=== PATIENT | female | born 1975 | race Caucasian/White ===

== ENCOUNTER 2019-12-14 14:13 | Emergency (ER) | payer OTHER, SELFPAY ==
--- NOTE | ~2019-12-14 | CT_ITS ---
EXAMINATION: CT abdomen pelvis wo con DATE: 12/14/2019 15:59 INDICATION: Left flank pain, hematuria, dysuria TECHNIQUE: Computed tomography (CT) of the abdomen and pelvis was performed without intravenous contr ast. Automated exposure control and iterative reconstruction technique were employed. Exam dose: 103 8.24 mGy-cm total exam DLP. COMPARISON: 09/25/2013 CT abdomen pelvis FINDINGS: The included lower lung zones are clear of infiltrate or consolidation or pulmonary mass le ricky. Prominent hepatic steatosis. Status post cholecystectomy. No bile duct or pancreatic duct dilatation is detected. Normal splenic s ize. No adrenal mass lesion. No renal mass lesion. No urinary tract calculus or hydroureteronephrosis. The urinary bladder is unre markable. Status post hysterectomy. Normal caliber of the abdominal aorta. No intraperitoneal or retroperitoneal or pelvic mass lesion or adenopathy or ascites. Normal appendix. There is a suture line at the rectosigmoid area. No bowel obstruction, pneumatosis or intraperitoneal free air. IMPRESSION: No urinary tract calculus or hydroureteronephrosis is evident Status post rectosigmoid area resection Normal appendix Hepatic steatosis Status post cholecystectomy Reviewed, dictated and finalized at [facility] Reviewed, dictated and finalized at [facility].
[2019-12-14 14:19] VITALS: BP 134/102; PULSE 112; RESP 16; TEMP 37.5; O2SAT 97
[2019-12-14 15:22] LABS: Add Urine Microscopic? YES; Appearance Urine Clear (Clear); Bacteria Urine Trace /hpf; Bilirubin Urine Negative (Negative); Blood Urine 3+ (Negative); Color Urine Straw (Yellow); Glucose Urine UA Negative (Negative); Ketones Urine Negative (Negative); Leukocyte Esterase Ur 2+ LEU/UL (Negative); Nitrate Urine Negative (Negative); Protein Urine Negative (Negative); Squamous Epithelial Cell Urine Occasional /hpf (Few); Urobilinogen Urine Negative mg/dL (<2.0)
[2019-12-14 15:23] LABS: Specific Grav Ur 1.004 (1.001-1.035)
--- NOTE | 2019-12-14 16:11 | ED.FEMALEGU ---
HPI - Female Genitourinary General Chief complaint: Urogenital-Female Stated complaint: hematuria, flank pain Time Seen by Provider: 12/14/19 15:26 History of Present Illness HPI Narrative: Patient is a 44-year-old female who presents the ER with left-sided flank pain. Woke up this morning with pain in her left lower back. She then developed some blood in her urine and urinary frequency with dysuria. No vomiting but has some mild nausea. Patient reports some left lower quadrant discomfort as well. No fevers or chills or sweats. Has not had UTI or kidney stone before. Related Data Allergies Allergy/AdvReac Type Severity Reaction Status Date / Time latex Allergy Severe BLISTERS Unverified 09/23/15 11:46 UNDER AREAS--GLOVES, BANDAIDS, TAPES Review of Systems Review of Systems: All systems reviewed & are unremarkable except as noted in HPI and below Constitutional: Constitutional: Denies chills and Denies fatigue ENT: Denies nasal congestion and Denies sore throat Gastrointestinal: Gastrointestinal: Reports abdominal pain, Reports nausea and Denies vomiting Genitourinary: Genitourinary: Reports hematuria, Reports nocturia, Reports dysuria, Reports flank pain and Denies urinary incontinence PMFSH Past Medical History Medical History (Updated 12/14/19 @ 16:16 by Rodrigue Loya MD) Asthma Diabetes type 2, controlled History of PCOS Surgical History Surgical History (Updated 12/14/19 @ 16:13 by Rodrigue Loya MD) H/O: hysterectomy History of cholecystectomy Social History Social History Smoking status: Never smoker Alcohol intake: never Gender identity (if verbalized by the patient): Female Exam Narrative: Exam Narrative: GENERAL: Well-appearing, well-nourished, and in no acute distress. HEAD: Normocephalic, atraumatic. ENT: Mucous membranes moist. CHEST: Clear to auscultation. No respiratory distress. HEART: Regular rate and rhythm. Normal peripheral pulses. ABDOMEN: Soft, nontender, nondistended. BACK: No CVA tenderness. Mild low lumbar paraspinal tenderness left side near L5. No evidence of trauma or palpable spasm. No midline tenderness of the thoracic or lumbar spine. EXTREMITIES: Normal range of motion. No edema. SKIN: Warm, dry, no rash. NEURO: Alert and oriented x3. Course Vital Signs Vital signs: Vital Signs Temperature 99.5 F 12/14/19 14:19 Pulse Rate 112 H 12/14/19 14:19 Respiratory Rate 16 12/14/19 14:19 Blood Pressure 134/102 H 12/14/19 14:19 Pulse Oximetry 97 12/14/19 14:19 Temperature 99.5 F 12/14/19 14:19 Pulse Rate 112 H 12/14/19 14:19 Respiratory Rate 16 12/14/19 14:19 Blood Pressure 134/102 H 12/14/19 14:19 Pulse Oximetry 97 12/14/19 14:19 MDM - Female Genitourinary Lab Data Labs: Lab Results 12/14/19 Range/Units 14:49 Urine Color Straw (Yellow) Urine Appearance Clear (Clear) Urine pH 6.0 (5.0-9.0) Ur Specific [place] 1.004 (1.001-1.035) Urine Protein Negative (Negative) mg/dL Urine Glucose (UA) Negative (Negative) mg/dL Urine Ketones Negative (Negative) mg/dL Ur Blood (Man) 3+ H (Negative) Urine Nitrate Negative (Negative) Urine Bilirubin Negative (Negative) Urine Urobilinogen Negative (<2.0) mg/dL Leukocyte Esterase Rfl 2+ H (Negative) PAYAL/UL Urine RBC 3-5 H (0-2) /hpf Urine WBC 10-15 H /hpf Ur Squamous Epith Cells Occasional (Few) /hpf Urine Bacteria Trace /hpf Urine Characteristics Clear Imaging Data Radiologist's impression: ITS Impressions Abdomen/Pelvis CT 12/14/19 16:01 IMPRESSION: No urinary tract calculus or hydroureteronephrosis is evident Status post rectosigmoid area resection Normal appendix Hepatic steatosis Status post cholecystectomy Discharge Plan Discharge Clinical Impression: Urinary tract infection Patient Disposition: Home, Self-Care Condition:
== END 2019-12-14 16:41 | disposition home or self-care (01) ==
PROVIDERS: General Practice; Emergency Provider Emergency Medicine; PCP Emergency Medicine
DX: N39.0 Urinary tract infection, site not specified (principal); J45.909 Unspecified asthma, uncomplicated; E11.9 Type 2 diabetes mellitus without complications; E28.2 Polycystic ovarian syndrome; Z90.49 Acquired absence of other specified parts of digestive tract; K76.0 Fatty (change of) liver, not elsewhere classified; Z79.84 Long term (current) use of oral hypoglycemic drugs
CPT/HCPCS: 74176; 81001; 87077; 87086; 87088; 87186; 99284; A4565

== ENCOUNTER 2019-12-16 07:47 | Emergency (ER) | payer OTHER, SELFPAY ==
[2019-12-16 07:51] VITALS: BP 139/90; PULSE 110; RESP 18; TEMP 37.1; O2SAT 99
--- NOTE | 2019-12-16 10:51 | ED.ALLEREA ---
HPI - Allergic Reaction General Chief complaint: Allergic Reaction <MARLENA Lindsey Last Filed: 12/16/19 10:56> Stated complaint: medication reaction <MARLENA Lindsey Last Filed: 12/16/19 10:56> Time Seen by Provider: 12/16/19 10:02 <MARLENA Lindsey Last Filed: 12/16/19 10:56> Source: patient and old records reviewed (Cultures were reviewed from prior visit) <MARLENA Lindsey Last Filed: 12/16/19 10:56> Mode of arrival: ambulatory <MARLENA Lindsey Last Filed: 12/16/19 10:56> Limitations: no limitations <MARLENA Lindsey Last Filed: 12/16/19 10:56> History of Present Illness HPI narrative: Patient is a 44-year-old female who presents to emergency department for evaluation of allergic reaction secondary to starting Keflex and Pyridium for urinary tract infection and notes that yesterday she began to feel as though she was having a reaction discontinue taking the medicine took Benadryl had improvement of those symptoms although some mild discomfort of the neck and under the arms. Patient notes she continues to have some mild urinary symptoms with some mild discomfort of the abdomen and low back . Patient had blood work and CAT scan on the prior visit. Patient on arrival denies fever nausea vomiting <MARLENA Lindsey Last Filed: 12/16/19 10:56> Related Data Home medications: Home Medications Medication Instructions Recorded Confirmed estrogens-methyltestosterone 1 tablet PO DAILY 12/16/19 12/16/19 metformin 500 mg PO DAILY 12/16/19 12/16/19 <MARLENA Lindsey Last Filed: 12/16/19 10:56> Allergies/adverse reactions: Allergies Allergy/AdvReac Type Severity Reaction Status Date / Time latex Allergy Severe BLISTERS Unverified 12/16/19 08:19 UNDER AREAS--GLOVES, BANDAIDS, TAPES cephalexin Allergy Agitated Verified 12/16/19 08:19 <MARLENA Lindsey Last Filed: 12/16/19 10:56> Review of Systems Review of Systems: All systems reviewed & are unremarkable except as noted in HPI and below <MARLENA Lindsey Last Filed: 12/16/19 10:56> [facility] Past Medical History Medical History: Medical History Asthma Diabetes type 2, controlled History of PCOS <Jacob Leonard PA-C - Last Filed: 12/16/19 10:56> Surgical History Surgical History: Surgical History H/O: hysterectomy History of cholecystectomy <Jacob Leonard PA-C - Last Filed: 12/16/19 10:56> Social History Social History: Social History Smoking status: Never smoker Alcohol intake: never Gender identity (if verbalized by the patient): Female <Jacob Leonard PA-C - Last Filed: 12/16/19 10:56> Exam Narrative: Exam Narrative: GENERAL: Well-appearing, well-nourished, and in no acute distress. HEAD: Normocephalic, atraumatic. EYES: PERRLA and EOMI. ENT: Nares clear, no rhinorrhea or epistaxis. Mucous membranes moist. CHEST: Clear to auscultation. No respiratory distress. No wheezes rales or rhonchi HEART: Regular rate and rhythm. No murmur heard. Normal peripheral pulses. ABDOMEN: Soft, nontender, nondistended EXTREMITIES: Normal range of motion. No edema. SKIN: Warm, dry, no rash. NEURO: No focal deficits. Alert and oriented x3. Cranial nerves II through XII grossly intact PSYCH: Normal mood and affect. <Jacob Leonard PA-C - Last Filed: 12/16/19 10:56> Course Course Emergency Course: Patient in the room in no distress aware of case findings treatment plan and diagnosis agreeing to follow-up as directed or to return if symptoms worsen or concerns. <Jacob Leonard PA-C - Last Filed: 12/16/19 10:56> Vital Signs Vital signs: Vital Signs Temperature 98.8 F 12/16/19 07:51 Pulse Rate
[2019-12-16 11:24] VITALS: BP 127/96; PULSE 97; RESP 18; O2SAT 98
== END 2019-12-16 11:36 | disposition home or self-care (01) ==
PROVIDERS: Emergency Provider Emergency Medicine; PCP Emergency Medicine
DX: N39.0 Urinary tract infection, site not specified (principal); J45.909 Unspecified asthma, uncomplicated; E11.9 Type 2 diabetes mellitus without complications; E28.2 Polycystic ovarian syndrome
CPT/HCPCS: 99283